=== PATIENT | male | born 1955 ===

== ENCOUNTER 2021-07-23 06:00 | Outpatient (RCR) | payer BC, SELFPAY | END 2021-08-01 23:59 | disposition home or self-care (01) | LOC: MPT 06:00 | PROVIDERS: Visit Provider Urology | DX: N39.3 Stress incontinence (female) (male) (principal) | CPT/HCPCS: 97110; 97140; 97161; 97530 ==

== ENCOUNTER 2021-08-02 | Outpatient (RCR) | payer BC, SELFPAY | END 2021-09-01 23:59 | disposition home or self-care (01) | LOC: MPT | PROVIDERS: Visit Provider Urology | DX: N39.3 Stress incontinence (female) (male) (principal) | CPT/HCPCS: 97110; 97140 ==

== ENCOUNTER 2021-09-02 06:00 | Outpatient (RCR) | payer BC, SELFPAY | END 2021-10-01 23:59 | disposition home or self-care (01) | LOC: MPT 06:00 | PROVIDERS: Visit Provider Urology | DX: N39.3 Stress incontinence (female) (male) (principal) | CPT/HCPCS: 97110; 97140; 97530 ==